=== PATIENT | male | born 1975 | race African-American/Black ===

== ENCOUNTER 2020-10-30 19:10 | Emergency (ER) | payer MEDICAID ==
[~2020-10-30] VITALS: Ht 182.9 cm; Wt 112.5 kg
[2020-10-30 20:50] VITALS: BP 148/83
--- NOTE | 2020-10-30 22:25 | NUR ---
PT WAS D/C WITH VSS. NO SIGN OF DISTRESS NOTED. PT WAS INSTRUCTED TO FOLLOW UP WITH PCP AND EDUCATED ON IN HOME CARE. PT UNDERSTOOD. PT AMBULATED OUT OF ER.
[2020-10-30 22:26] VITALS: BP 148/83
== END 2020-10-30 22:25 | disposition home or self-care (01) ==
LOC: MED 19:10
DX: M25.561 Pain in right knee (principal); Z88.2 Allergy status to sulfonamides; X50.1XXA Overexertion from prolonged static or awkward postures, initial encounter; Y93.89 Activity, other specified; Y92.89 Other specified places as the place of occurrence of the external cause; Y99.8 Other external cause status
CPT/HCPCS: 73562; 99283